=== PATIENT | male | born 1980 | race African-American/Black ===

== ENCOUNTER 2018-12-17 08:19 | Emergency (ER) | payer SELFPAY ==
[2018-12-17 09:10] LABS: Blood, Urine Large (Negative); Glucose, Urine (Dipstick) Negative (Negative); Leukocyte Negative (Negative); Nitrite Negative (Negative); Protein, Urine (Dipstick) 100 mg/dL (Neg-Trace); Urobilinogen 0.2 mg/dL (0.2-1.0)
[2018-12-17 09:14] LABS: Clarity Cloudy (Clear)
[2018-12-17 09:18] LABS: Bilirubin Unable to Interpret (Negative); RBC/HPF GREATER THAN 50-TNTC HPF (0-3); Squamous Epithelial 0-3 HPF (0-3); WBC/HPF 0-3 HPF (0-3)
[2018-12-17 09:19] LABS: Bacteria/HPF Rare-Few HPF (None Seen); Hyaline Casts/LPF NONE SEEN LPF (0-3 Hyaline); Yeast-All Forms None Seen HPF (None Seen)
[2018-12-17 09:59] LABS: #Basophils 0.1 thou/uL (0.0-0.2); #Lymphocytes 1.2 thou/uL (1.20-3.40); #Monocytes 0.6 thou/uL (0.11-0.59); #Neutrophils 2.3 thou/uL (1.40-6.50); %Basophils 2.9 % (0.0-1.0); %Eosinophils 0.8 % (0.0-10.0); %Lymphocytes 28.5 % (21.0-51.0); %Monocytes 14.4 % (0.0-10.0); %Neutrophils 53.4 % (42.0-75.0); Hemoglobin 14.1 g/dL (14.0-18.0); Mean Corpuscular HGB CONC 32.7 g/dL (32.0-36.0); Mean Corpuscular Hemoglobin 26.7 pg (27.0-31.0); Mean Corpuscular Volume 81.6 fL (78.0-98.0); Mean Platelet Volume 9.3 fL (7.4-10.4); Platelet Count 227 thou/uL (130-400); RBC Distribution Width 12.6 % (11.5-14.5); Red Blood Cell (RBC) Count 5.27 mill/uL (4.70-6.10); White Blood Cell (WBC) Count 4.3 thou/uL (4.8-10.8)
[2018-12-17 10:19] LABS: ALT (SGPT) 34 U/L (8-55); AST (SGOT) 24 U/L (5-34); Albumin 4.2 g/dL (3.5-5.0); Alkaline Phosphatase 126 U/L (40-150); Anion Gap 11 mmol/L (10-20); BUN (Urea Nitrogen) 11 mg/dL (8.9-20.6); Bilirubin, Total 0.5 mg/dL (0.2-1.2); Calc. Creatinine Clearance 0 mL/min (70-130); Calcium 9.4 mg/dL (7.8-10.44); Carbon Dioxide 30 mmol/L (22-29); Chloride 99 mmol/L (98-107); Estimated GFR-MDRD Greater than 90; Globulin 3.5 g/dL (2.4-3.5); Glucose 116 mg/dL (70-105); Potassium 3.9 mmol/L (3.5-5.1); Protein, Total 7.7 g/dL (6.0-8.3); Sodium 136 mmol/L (136-145)
--- NOTE | 2018-12-17 11:20 | CT ---
CT ABDOMEN AND PELVIS WITH IV CONTRAST: Date: 12/17/18 Multiple axial tomograms obtained through the abdomen and pelvis with IV enhancement. INDICATION: Hematuria. FINDINGS: Lung bases clear. Liver, spleen, and pancreas are unremarkable. There is a small gallstone which appears to reside in the neck of the gallbladder, possibly within th e cystic duct. This small stone measures in the 4.0 mm range. No significant pericholecystic edema or inflammation apparent. Consider further evaluation with gallbladder ultrasound. Adrenal glands are normal. Review of the kidneys show numerous small nonobstructing calculi in the right kidney with the largest measuring approximately 5.0 mm. There appear to be one or two small nonobstructing calculi also in t he left renal collecting structures. There are numerous bilateral renal cystic lesions. There is a co mplex appearing low density cystic lesion in the mid posterior left renal cortex measuring up to 3.0 cm. This has lobulated contour and suggestion of some mild peripheral enhancement. Follow-up for this lesion is recommended. A cystic lesion in the right kidney measures up to 3.0 cm. There are other sm aller cystic lesions bilaterally. Both ureters are normal caliber. Urinary bladder is mildly distended and unremarkable. Bowel loops appear unremarkable. No adenopathy. Aorta normal caliber. Pelvic structures unremarkable. IMPRESSION: 1. Evidence of a small, 4.0 mm, calculus in the neck of the gallbladder, possibly within the proxima l cystic duct. Minimally distended gallbladder without evidence of gallbladder inflammation. 2. There are bilateral nonobstructing calculi in both kidneys as described above, more numerous on t he right. No evidence of ureteral calculus or hydronephrosis. 3. Bilateral renal cystic lesions. A complex appearing cyst in the posterior left renal cortex measu res 3.0 cm with lobulated borders and questionable enhancement. Recommend this lesion be followed wit h follow-up CT or ultrasound. Findings discussed with Dr. Whitten at time of dictation. CODE CR. POS: [facility]
[2018-12-17] MEDS ORDERED: ISOVUE-370 76%-LOCM 1 ML ONE (11:25)
== END 2018-12-17 10:57 | disposition home or self-care (01) ==
LOC: ERS 08:19
DX: N20.0 Calculus of kidney (principal); K80.20 Calculus of gallbladder without cholecystitis without obstruction
CPT/HCPCS: 74177; 80053; 81003; 81015; 85025; Q9966

== ENCOUNTER 2023-04-14 15:25 | Emergency (ER) | payer OTHER | END 2023-04-14 16:41 | disposition home or self-care (01) | LOC: ERS 15:25 | DX: S90.111A Contusion of right great toe without damage to nail, initial encounter (principal); W22.8XXA Striking against or struck by other objects, initial encounter ==